=== PATIENT | male | born 1975 | race Caucasian/White ===

== ENCOUNTER 2017-07-17 18:34 | Emergency (ER) | payer SELFPAY | END 2017-07-17 20:00 | disposition home or self-care (01) | LOC: D.ER 18:34 → EDBD 18:34 → D.ER 20:00 | DX: S83.421A Sprain of lateral collateral ligament of right knee, initial encounter (principal); X58.XXXA Exposure to other specified factors, initial encounter; Y93.67 Activity, basketball; Y92.019 Unspecified place in single-family (private) house as the place of occurrence of the external cause; F17.200 Nicotine dependence, unspecified, uncomplicated ==

== ENCOUNTER 2017-09-15 18:08 | Emergency (ER) | payer SELFPAY ==
[2017-09-15 18:48] LABS: BASOPHILS 0.2 % (0-2); EOSINOPHILS 1.3 % (0-7); HEMOGLOBIN 15.4 g/dL (13.5-17.5); IMMATURE GRANULOCYTES 0.5 % (0-5); LYMPHOCYTES 17.6 % (15-50); MCH 31.8 pg (26.0-34.0); MCV 90.9 fL (80.0-100.0); MEAN PLATELET VOLUME 9.6 fL (7.4-10.4); MONOCYTES 8.5 % (2-11); NEUTROPHILS 71.9 % (40-80); PLATELET COUNT 364 10x3/uL (130-400); RBC 4.84 10x6/uL (4.20-6.10); RDW 12.2 % (11.5-14.5)
[2017-09-15 19:14] LABS: ALBUMIN 4.9 g/dL (3.4-5.0); ANION GAP 14.3 mmol/L (8-16); CALCIUM 9.9 mg/dL (8.5-10.1); CARBON DIOXIDE 27.3 mmol/L (21.0-32.0); CREATININE - SERUM 4.1 mg/dL (0.6-1.3); POTASSIUM - SERUM 4.6 mmol/L (3.5-5.1); PROTEIN - SERUM 8.5 g/dL (6.4-8.2)
[2017-09-15 19:54] LABS: APPEARANCE CLEAR (CLEAR); COLOR YELLOW (YELLOW)
[2017-09-15 19:55] LABS: BILIRUBIN NEGATIVE (NEGATIVE); GLUCOSE 50 mg/dL (NEGATIVE); KETONE NEGATIVE (NEGATIVE); NITRITE NEGATIVE (NEGATIVE); PROTEIN 1+ mg/dL (NEGATIVE); UROBILINOGEN NORMAL (NORMAL)
[2017-09-15 19:56] LABS: WHITE CELLS - URINE 0-5 /hpf (0-5)
[2017-09-15 19:57] LABS: BACTERIA FEW /hpf (NONE SEEN); EPITHELIAL CELLS 0-5 /hpf (0-5); MUCUS <1+ /lpf (NONE SEEN); RED CELLS - URINE 0-5 /hpf (0-5)
[2017-09-15 20:24] LABS: CREATINE KINASE 237 UL (21-232)
[2017-09-15 20:49] LABS: CKMB 2.1 U/L (0.0-3.6)
== END 2017-09-15 22:26 | disposition home or self-care (01) ==
LOC: EDBD 18:08 → D.ER 18:08
PROVIDERS: Family Medicine; Physician Assistant
DX: T67.5XXA Heat exhaustion, unspecified, initial encounter (principal); X58.XXXA Exposure to other specified factors, initial encounter; Y93.89 Activity, other specified; Y92.89 Other specified places as the place of occurrence of the external cause; N28.9 Disorder of kidney and ureter, unspecified; E86.0 Dehydration; I10 Essential (primary) hypertension; F17.200 Nicotine dependence, unspecified, uncomplicated

== ENCOUNTER 2018-04-21 21:26 | Emergency (ER) | payer MEDICAID ==
[~2018-04-21] VITALS: Ht 182.9 cm; Wt 79.4 kg
[2018-04-21 21:42] VITALS: Ht 182.9 cm; Wt 79.4 kg
[2018-04-21] MEDS ORDERED: LISINOPRIL10 MG PO (21:43)
[2018-04-21] MEDS ORDERED: PRINZIDE 20/12.1 TA1 PO (21:43)
[2018-04-21] MEDS ORDERED: TAMIFLU75 MG PO (23:03)
[2018-04-21] MEDS ORDERED: AMBIEN10 MG PO (23:03)
[2018-04-21 23:15] VITALS: BP 121/78
== END 2018-04-21 23:15 | disposition home or self-care (01) ==
LOC: D.ER 21:26
DX: J11.1 Influenza due to unidentified influenza virus with other respiratory manifestations (principal); R06.02 Shortness of breath; R50.9 Fever, unspecified